=== PATIENT | male | born 1955 | race Hispanic/Latino ===

== ENCOUNTER 2018-04-25 06:21 | Emergency (ER) | payer OTHER ==
[~2018-04-25] VITALS: Ht 162.6 cm; Wt 95.3 kg
[2018-04-25 07:13] LABS: CLARITY,URINE CLEAR (CLEAR); COLOR,URINE YELLOW (YELLOW)
[2018-04-25 07:14] LABS: BILIRUBIN,URINE NEGATIVE (NEGATIVE); KETONES,URINE NEGATIVE (NEGATIVE); LEUKOCYTE ESTERASE ,URINE NEGATIVE (NEGATIVE); NITRITE,URINE NEGATIVE (NEGATIVE); PROTEIN,URINE DIPSTICK TRACE (NEGATIVE); URINE UROBILINOGEN 0.2 mg/dL (0.2 - 1)
--- NOTE | 2018-04-25 07:14 | NUR ---
Dr. Carreon at bedside with pt.
[2018-04-25 07:27] LABS: RBC,URINE >50 /HPF (0-5)
[2018-04-25 07:28] LABS: BACTERIA,URINE RARE /HPF; EPITHELIAL CELLS,URINE RARE /LPF; WBC,URINE (MAN) 0-5 /HPF (0-5)
[2018-04-25] MEDS ORDERED: MORPHINE SULFATE INJ 4 MG/ML INJ 1ML IV NR (07:30)
[2018-04-25] MEDS ORDERED: ONDANSETRON HCL INJ 2MG/ML 2ML 2 MG/ML VIAL IV NR (07:30)
[2018-04-25 07:36] LABS: BASOPHILS % 0.2 % (0.0-1.0); EOSINOPHILS # (AUTO) 0.2 (0.0-0.4); EOSINOPHILS % 1.8 % (0.0-6.0); HEMATOCRIT 44.4 % (38.2-49.6); HEMOGLOBIN 15.7 g/dL (14.0-18.0); LYMPHOCYTES # (AUTO) 1.2 (1.0-3.2); MEAN CORPUSCULAR HGB CONC 35.4 g/dL (31-35); MEAN CORPUSCULAR VOLUME 84.7 fL (81-99); MONOCYTES # (AUTO) 0.5 (0.2-0.8); MONOCYTES % 6.2 % (4.4-11.3); NEUTROPHILS # (AUTO) 6.4 (2.1-6.9); NEUTROPHILS % 77.4 % (38.7-80.0); PLATELET COUNT 226 x10e3/uL (140-360); RED BLOOD COUNT 5.24 x10e6/uL (4.3-5.7); RED CELL DISTRIBUTION WIDTH 12.8 % (11.7-14.4)
[2018-04-25 07:43] LABS: INR 2.21; PROTHROMBIN TIME 26.2 seconds (11.9-14.5)
[2018-04-25 07:44] LABS: PARTIAL THROMBOPLASTIN TIME 44.9 seconds (23.8-35.5)
[2018-04-25 07:56] LABS: ALANINE AMINOTRANSFERASE 17 IU/L (0-55); ALBUMIN 3.7 g/dL (3.5-5.0); ALBUMIN/GLOBULIN RATIO 1.2 (0.8-2.0); ALKALINE PHOSPHATASE 64 IU/L (40-150); ANION GAP 13.7 mmol/L (8-16); BLOOD UREA NITROGEN 12 mg/dL (7-26); BUN/CREATININE RATIO 13 (6-25); CARBON DIOXIDE 20 mmol/L (22-29); CHLORIDE 105 mmol/L (98-107); CREATININE, SERUM 0.92 mg/dL (0.72-1.25); EST GLOMERULAR FILTRATION RATE > 60 ML/MIN (60-); GLUCOSE 104 mg/dL (74-118); POTASSIUM 3.7 mmol/L (3.5-5.1); SODIUM 135 mmol/L (136-145)
--- NOTE | 2018-04-25 07:58 | Diagnostic Imaging Report ---
EXAMINATION: CT of the abdomen and pelvis without contrast. TECHNIQUE: Spiral CT images of the abdomen and pelvis were performed from the lung bases to the lesser trochanters. No intravenous contrast was given per renal stone protocol. Coronal and sagittal reformatted images were obtained. COMPARISON: None. CLINICAL HISTORY:Right flank pain DISCUSSION: ABSENCE OF INTRAVENOUS CONTRAST DECREASES SENSITIVITY FOR DETECTION OF FOCAL LESIONS AND VASCULAR PATHOLOGY. ABDOMEN/PELVIS: LOWER THORAX: Linear and reticular opacities compatible with subsegmental atelectasis in the lower lobes, right greater than left. HEPATOBILIARY:2.4 cm hypoattenuating lesion in segment 3, average internal attenuation 30-35 Hounsfield units. No additional focal hepatic lesion or intrahepatic biliary ductal dilatation. The gallbladder is unremarkable. SPLEEN: No splenomegaly. PANCREAS: No focal masses or ductal dilatation. ADRENALS: No nodules KIDNEYS/URETERS:4 mm nonobstructing calculus lower pole left kidney. 2 mm calculus at the right ureterovesical junction (series 3 image 174). Mild asymmetric right perinephric fat stranding. No hydronephrosis. No additional ureteral or bladder calculi. No gross renal mass lesion. PELVIC ORGANS/BLADDER: The urinary bladder is incompletely distended and suboptimally evaluated. The right side of the urinary bladder body is located partially within a right inguinal hernia. No perivesicular inflammatory change. Coarse central prostatic calcifications. PERITONEUM/RETROPERITONEUM: No free air or fluid. LYMPH NODES: No pelvic sidewall, retroperitoneal, or mesenteric lymphadenopathy. VESSELS: Limited evaluation without intravenous contrast. The abdominal aorta is nonaneurysmal. Atherosclerotic calcification. Cavernous transformation of the portal vein. GI TRACT: Postsurgical changes of primary anastomosis at the sigmoid colon. Multiple descending and proximal sigmoid diverticula without wall thickening or adjacent inflammatory change. The appendix is normal. The stomach is collapsed with prominent rugal folds. No small bowel dilatation to suggest obstruction. BONES AND SOFT TISSUES: No osseous destructive lesions. Probable bone island in the left iliac wing. Degenerative disc changes of the lower lumbar spine. Bilateral inguinal hernias. The right inguinal hernia contains a small portion of the urinary bladder. IMPRESSION: 2 mm right ureterovesical junction calculus results in mild perinephric inflammation, but no significant hydroureteronephrosis. Additional nonobstructing left lower pole renal calculus. No additional acute findings. 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 2.4 cm hypoattenuating lesion in hepatic segment 3 is incompletely characterized without intravenous contrast. A nonemergent CT or MRI of the abdomen with and without contrast (liver mass protocol) is suggested for further evaluation. Postsurgical changes of the sigmoid colon with diffuse diverticulosis. Right-sided inguinal hernia contains a portion of the urinary bladder, without inflammation. Signed by: Dr. John Raya M.D. on 04/25/2018 7:55 AM
[2018-04-25] MEDS ORDERED: ULTRAM50 MG PO (08:18)
[2018-04-25] MEDS ORDERED: FLOMAX0.4 MG PO (08:18)
[2018-04-25 09:17] VITALS: BP 127/81
== END 2018-04-25 09:28 | disposition home or self-care (01) ==
LOC: ER 06:21
DX: R10.9 Unspecified abdominal pain (principal); R11.0 Nausea; M54.5 Low back pain; N20.1 Calculus of ureter; I10 Essential (primary) hypertension; Z86.718 Personal history of other venous thrombosis and embolism
CPT/HCPCS: 36415; 74176; 80053; 81001; 85025; 85610; 85730; 99284; J2270; J2405